=== PATIENT | male | born 1955 | race Asian ===

== ENCOUNTER 2017-03-13 06:12 | Emergency (ER) | payer MEDICARE ==
[~2017-03-13] VITALS: Ht 172.7 cm; Wt 83.0 kg
[2017-03-13 06:19] VITALS: BP 158/99
[2017-03-13] MEDS ORDERED: IBUP200C5 PO (06:19)
[2017-03-13] MEDS ORDERED: GABA300C10 PO (06:19)
[2017-03-13] MEDS ORDERED: BACL20TA PO (06:19)
[2017-03-13] MEDS ORDERED: LIDOCAINE 1%, 20ML SQ ONE (06:30)
[2017-03-13] MEDS ORDERED: LIDOCAINE 1%, 20ML ONE (06:34)
== END 2017-03-13 07:17 | disposition home or self-care (01) ==
LOC: ED 06:29
DX: S01.412A Laceration without foreign body of left cheek and temporomandibular area, initial encounter (principal); Y08.89XA Assault by other specified means, initial encounter; Y93.89 Activity, other specified; Y92.830 Public park as the place of occurrence of the external cause; Y99.9 Unspecified external cause status
CPT/HCPCS: 12051; 99284